=== PATIENT | female | born 1980 | race Caucasian/White ===

== ENCOUNTER 2021-02-21 15:06 | Emergency (ER) | payer BC, SELFPAY ==
--- NOTE | ~2021-02-21 | XR_ITS ---
EXAMINATION: XR knee RT 3V DATE: 02/21/2021 15:25 INDICATION: Lateral right knee pain post fall TECHNIQUE: Anteroposterior, oblique and crosstable lateral views of the right knee were obtained COMPARISON: None. FINDINGS: Alignment is normal. No fracture. Joint spaces appear normal on nonweightbearing imaging. Small righ t knee joint effusion without layering lipohemarthrosis. Soft tissues are unremarkable. IMPRESSION: 1. Small right knee joint effusion. No osseous abnormality. Reviewed, dictated and finalized at location A.
[2021-02-21 15:26] VITALS: BP 168/104; PULSE 92; RESP 18; TEMP 36.7; O2SAT 98
--- NOTE | 2021-02-21 16:41 | ED.LOWEXIN ---
HPI - Extremity Injury (Lower) General Chief Complaint: Extremity Injury, Lower Stated Complaint: poss right knee dislocation Time Seen by Provider: 02/21/21 16:14 Source: patient Mode of arrival: ambulatory Limitations: no limitations History of Present Illness HPI Narrative: This is a 41-year-old female that presents the emergency department for right knee injury sustained yesterday. Reports she was on her boat and slipped. Reports she twisted the right knee. Reports that she has had pain and swelling in the knee. Denies hitting her head, other injuries, decreased range of motion or numbness. Related Data Home Medications Medication Instructions Recorded Confirmed aspirin 81 mg PO DAILY 02/21/21 omeprazole 20 mg PO DAILY 02/21/21 Allergies Allergy/AdvReac Type Severity Reaction Status Date / Time No Known Allergies Allergy Unknown Verified 02/21/21 16:17 Review of Systems Review of Systems: CONSTITUTIONAL: Denies fever MUSCULOSKELETAL: Reports joint pain, and myalgia. NEUROLOGIC: Denies numbness All systems reviewed & are unremarkable except as noted in HPI and below PMFSH Past Medical History Medical History (Updated 02/21/21 @ 16:45 by Shy Melgoza PA-C) History of gastroesophageal reflux (GERD) Social History Social History (Updated 02/21/21 @ 16:42 by Shy Melgoza PA-C) Smoking status: Current every day smoker Exam Narrative: GENERAL: Well-appearing, well-nourished, and in no acute distress. HEAD: Normocephalic, atraumatic. EYES: EOMI. EXTREMITIES: Normal range of motion. No obvious deformity. Mild edema about the right knee anteriorly. Normal DP pulses. Normal sensation SKIN: Warm, dry, no rash. NEURO: No focal deficits. Alert and oriented x3. PSYCH: Normal mood and affect Course Vital Signs Vital signs: Vital Signs Temperature 98.0 F 02/21/21 15:26 Pulse Rate 92 02/21/21 15:26 Respiratory Rate 18 02/21/21 15:26 Blood Pressure 168/104 H 02/21/21 15:26 Pulse Oximetry 98 02/21/21 15:26 Temperature 98.0 F 02/21/21 15:26 Pulse Rate 92 02/21/21 15:26 Respiratory Rate 18 02/21/21 15:26 Blood Pressure 168/104 H 02/21/21 15:26 Pulse Oximetry 98 02/21/21 15:26 MDM - Extremity Injury (Lower) MDM Narrative Medical decision making narrative: Patient presents to the emergency department for right knee injury sustained yesterday. X-ray does show a small knee joint effusion. No osseous abnormalities. Patient placed in a knee immobilizer and given crutches. Instructed on care of knee sprain. She is to follow-up with orthopedics. She was given warnings to return to the ER Imaging Data Radiologist's impression: ITS Impressions Knee X-Ray 02/21/21 15:28 IMPRESSION: 1. Small right knee joint effusion. No osseous abnormality. Critical Care Time Critical Care Time Critical Care Time: No Discharge Plan Discharge Clinical Impression: Acute internal derangement of knee Qualifiers: Laterality: right Qualified Code(s): M23.91 - Unspecified internal derangement of right knee Patient Disposition: Home, Self-Care Condition: Stable Instructions: Knee Sprain (ED) Additional Instructions: Return to the emergency department if you experience fever, redness and swelling of your leg, numbness, or any other symptoms that are concerning to you Wear knee immobilizer and use crutches. No weight on the affected leg. Ice and elevate extremity. Pain medication as needed and directed. Follow up with orthopedics for further care. Prescriptions: No Action omeprazole 20 mg Tablet,Delayed Release (Dr/Ec) 20 mg PO DAILY RF: 0 aspirin 81 mg Capsule 81 mg PO DAILY RF: 0 Follow-up/Referrals: James Dsouza MD [Physician] - 1 Week PHYSICIAN NOT ON STAFF,NONSTAFF [Primary Care Provider] -
== END 2021-02-21 17:05 | disposition home or self-care (01) ==
PROVIDERS: Emergency Provider Family Medicine
DX: M23.91 Unspecified internal derangement of right knee (principal); S89.91XA Unspecified injury of right lower leg, initial encounter; K21.9 Gastro-esophageal reflux disease without esophagitis; F17.200 Nicotine dependence, unspecified, uncomplicated; X50.9XXA Other and unspecified overexertion or strenuous movements or postures, initial encounter; W18.49XA Other slipping, tripping and stumbling without falling, initial encounter
CPT/HCPCS: 73562; 99283

== ENCOUNTER 2021-03-10 09:41 | Outpatient (CLI) | payer BC, SELFPAY ==
--- NOTE | ~2021-03-10 | MR_ITS ---
EXAMINATION: MR knee RT wo con DATE: 03/10/2021 10:18 INDICATION: Unspecified right lower leg injury presenting with generalized right knee pain and diffic ulty walking post fall 2 1/2 weeks prior. TECHNIQUE: Magnetic resonance imaging (MRI) of the right knee was performed without intravenous contr ast. Sequences included coronal PD-weighted FSE, coronal PD-weighted FS FSE, sagittal T2-weighted FS E, sagittal PD-weighted FS FSE and axial PD weighted fat saturated FSE. COMPARISON: None. FINDINGS: Medial compartment: Medial meniscus is normal. Small region of shallow chondral ulceration along the lateral margin of th e anterior weightbearing medial femoral condyle. Remaining cartilage in the medial compartment is nor mal. Lateral compartment: Lateral meniscus is normal. Articular cartilage is normal. Patellofemoral compartment: Deep chondral ulceration and fissuring along the patellar apical ridge subarticular cystic change. Ad ditional deep chondral ulceration and fissuring with underlying cortical irregularity and minimal sub articular edema along the inferior aspect of the medial trochlea. Ligaments and tendons: Anterior and posterior cruciate ligaments are normal. Medial collateral ligament is normal. Mild thic kening and mild increased signal of the proximal fibular collateral ligament without surrounding anju a consistent with scarring related to chronic sprain. Mild distal quadriceps tendinopathy. Patellar t endon is normal. The visualized medial and lateral hamstring tendons as well as the iliotibial band a re normal. Fluid: Small right knee joint effusion. No loose osteochondral bodies identified. Mild prepatellar edema wit hout discrete bursal fluid collection. Osseous/other: A few small low signal intensity bone islands at the lateral femoral condyle and medial metaphyseal r egion of the distal femur. No fracture or abnormal marrow replacing process. IMPRESSION: 1. 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 2. Minimal osteoarthritis medial compartment with small region of moderate grade chondromalacia along the anterior weightbearing medial femoral condyle. 3. Small right knee joint effusion. Reviewed, dictated and finalized at location A. IMPRESSION: 1. Mild patellofemoral osteoarthritis with high-grade patellar and trochlear ch ondromalacia. 2. Minimal osteoarthritis medial compartment with small region of moderate grad e chondromalacia along the anterior weightbearing medial femoral condyle. 3. Small right knee joint effusion.
== END 2021-03-10 09:42 ==
LOC: MICIMG 09:42
PROVIDERS: Visit Provider Orthopaedic Surgery
DX: S89.91XA Unspecified injury of right lower leg, initial encounter (principal); M17.11 Unilateral primary osteoarthritis, right knee; M22.41 Chondromalacia patellae, right knee
CPT/HCPCS: 73721

== ENCOUNTER 2023-06-01 07:46 | Emergency (ER) | payer BC, SELFPAY ==
--- NOTE | ~2023-06-01 | XR_ITS ---
EXAMINATION: XR chest 2V DATE: 06/01/2023 08:19 INDICATION: Tachycardia TECHNIQUE: PA and lateral views of the chest are obtained. COMPARISON: None available FINDINGS: The lungs are free of acute opacities. No pleural effusion or pneumothorax. The cardiomedia stinal silhouette is normal. There is mild thoracic spondylosis. IMPRESSION: 1. No acute cardiopulmonary abnormality. Reviewed, dictated and finalized at location B. WARE VALIDATION TECHNICIAN
--- NOTE | 2023-06-01 07:48 | ECG_ITS ---
Measurements Intervals [place] Rate: 79 P: 45 AL: 147 QRS: 41 QRSD: 95 T: 50 QT: 389 QTc: 447 Interpretive Statements SINUS RHYTHM WITH SINUS ARRHYTHMIA NORMAL ECG NO PREVIOUS ECG AVAILABLE FOR COMPARISON Electronically Signed On 06-01-2023 15:33:35 TELECOMMUNICATIONS ADMINISTRATOR by Acosta Parra M.D.
[2023-06-01 07:52] VITALS: BP 175/104; PULSE 89; RESP 18; TEMP 36.8; O2SAT 99
--- NOTE | 2023-06-01 07:52 | ED.CHESTPAIN ---
HPI - Chest Pain General Chief Complaint: Chest Pain Stated Complaint: heart flutter Time Seen by Provider: 06/01/23 07:48 Source: patient Mode of arrival: ambulatory Limitations: no limitations History of Present Illness HPI narrative: Patient is a 43-year-old female with known borderline hypertension. She has been having palpitations for the past week. It is associated with some chest pain. No shortness of breath. No fever or chills. No nausea vomiting or diarrhea. Specifically when she relaxes at night palpitations are noted. MD complaint: chest pain Onset (ago): week(s) (1) Timing of current episode: episodic Prior episodes: Yes Onset: during rest Pain location: left chest Pain radiation: none Severity: moderate Pain scale (0-10): 5 Quality: sharp Relieving factors: nothing Exacerbating factors: nothing Context: other ( Known elevated blood pressures without medication) Treatment prior to arrival: none Risk Factors Coronary artery disease risk factors: none Thoracic aortic dissection risk factors: none Related Data On Oral Contraceptives: No Home Medications Medication Instructions Recorded Confirmed omeprazole 20 mg tablet,delayed 20 mg PO DAILY 02/21/21 06/01/23 release Allergies Allergy/AdvReac Type Severity Reaction Status Date / Time No Known Allergies Allergy Unknown Verified 04/01/21 14:49 Review of Systems Review of Systems: All systems reviewed & are unremarkable except as noted in HPI and below Constitutional: Constitutional: Reports as per HPI Eyes: Eyes: Reports as per HPI ENT: Reports system reviewed and no additional complaints, except as documented Cardiovascular: Cardiovascular: Reports as per HPI Respiratory: Respiratory: Reports as per HPI Gastrointestinal: Gastrointestinal: Reports as per HPI Genitourinary: Genitourinary: Reports no additional female genitourinary complaints Musculoskeletal: Musculoskeletal: Reports no additional musculoskeletal complaints Integumentary/Breasts: Skin/Breast: Reports system reviewed and no additional complaints, except as docu Neurologic: Reports system reviewed and no additional complaints, except as documented Psychiatric: Psychiatric: Reports no additional psychiatric complaints Endocrine: Endocrine: Reports no additional endocrine complaints Hematologic/Lymphatic: Hematologic/Lymphatic: Reports no additional hematologic/lymphatic complaints Allergic/Immunologic: Allergic/Immunologic: Reports no additional allergic/immunologic complaints PMFSH Past Medical History Medical History History of gastroesophageal reflux (GERD) Social History Social History Smoking packs per day: 0.5 Smoking cigarettes per day: 10.0 Years smoked: 20 Smoking pack-years: 10.00 Smoking status: Current every day smoker Tobacco type: cigarettes Alcohol intake: current Substance use: never Substance use type: does not use Living arrangements: with family Occupation/Education: 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[employer] Gender identity (if verbalized by the patient): Female Exam Const: General: healthy appearing Nutritional Appearance: well nourished Orientation/consciousness: patient oriented x3 Limitations: no limitations HENMT: Head: normal to inspection Ears: external ears normal Face/Nose/Sinus: Normal external nose present Eyes: Conjunctivae: conjunctivae normal Pupils: Equal, round and reactive pupils present EOM: EOMs intact bilaterally Neck: Neck: normal visual inspection Chest: Chest palpation & inspection: normal inspection of the chest Resp: Effort & Inspection: normal respiratory effort Auscultation: clear to auscultation bilaterally Cardio: Rate: regular rate Rhythm: regular rhythm Heart sounds: no murmurs GI: Inspection: non-distended GI Palp: Yes
[2023-06-01 08:06] LABS: Basophils Absolute Auto 0.02 K/mm3 (0.00-0.10); Basophils Percent Auto 0.2 % (0.0-1.0); Eosinophils Absolute Auto 0.11 K/mm3 (0.02-0.50); Eosinophils Percent Auto 1.2 % (1.0-6.0); Hematocrit 39.3 % (35.0-49.0); Hemoglobin 12.7 g/dL (12.0-15.0); Immature Granulocyte Absolute 0.02 K/mm3 (0.00-0.00); Immature Granulocyte Percent A 0.2 % (0.0-0.0); Lymphocytes Absolute Auto 2.18 K/mm3 (1.10-4.50); Lymphocytes Percent Auto 24.2 % (18.0-42.0); Mean Corpuscular HGB Conc 32.3 g/dL (32.0-36.0); Mean Corpuscular Hemoglobin 29.8 pg (27.0-31.0); Mean Corpuscular Volume 92.3 fL (78.0-102.0); Mean Platelet Volume 10.8 fl (9.2-11.8); Monocytes Percent Auto 5.5 % (2.0-11.0); Neutrophils Absolute Auto 6.2 K/mm3 (1.7-7.2); Neutrophils Percent Auto 68.7 % (50.0-70.0); Platelet Count Result 266 K/mm3 (150-420); Red Blood Count 4.26 M/mm3 (4.20-5.40); Red Cell Distribution Width 14.4 % (11.6-14.4)
[2023-06-01 08:11] VITALS: O2SAT 97
[2023-06-01 08:20] LABS: SARS-CoV-2 Ag Negative (Negative)
[2023-06-01 08:20] LABS: D Dimer 0.19 mg/L (0.19-0.50); INR 0.9; Partial Thromboplastin Time 25.9 SEC (23.90-30.70); Prothrombin Time 10.3 Seconds (9.50-12.10)
[2023-06-01] MEDS: amLODIPine BESYLATE 5 MG TABLET PO (08:22)
[2023-06-01 08:31] LABS: Alanine Aminotransferase 28 U/L (14-59); Albumin Level 3.5 g/dL (3.4-5.0); Alkaline Phosphatase 59 U/L (46-116); Anion Gap 5 mmol/L (8-16); Aspartate Amino Transferase 17 U/L (15-37); Bilirubin,Total 0.3 mg/dL (0.00-1.00); Blood Urea Nitrogen 12 mg/dL (7-18); Carbon Dioxide 31 mmol/L (21-32); Chloride 99 mmol/L (98-108); Estimated CRCL calculation 116 ml/min; Estimated Glomerular Filt Rate > 60; Glucose 110 mg/dL (70-99); Lipase 14 U/L (16-77); NT Pro B Type Natriuretic Pept 74 pg/mL (0-125); Osmolality Calculated 280 mOsm/kg (285-295); Potassium 3.9 mmol/L (3.5-5.1); Sodium 135 mmol/L (136-145); Total Protein 7.3 g/dL (6.4-8.2); Troponin I 5.4 ng/L (0.00-60.4)
[2023-06-01 09:44] VITALS: BP 158/93; PULSE 88; RESP 20; TEMP 36.7; O2SAT 100
== END 2023-06-01 09:49 | disposition home or self-care (01) ==
PROVIDERS: Emergency Provider Emergency Medicine
DX: R00.2 Palpitations (principal); I10 Essential (primary) hypertension; F17.210 Nicotine dependence, cigarettes, uncomplicated; Z20.822 Contact with and (suspected) exposure to COVID-19
CPT/HCPCS: 36415; 71046; 80053; 83690; 83880; 84484; 85025; 85380; 85610; 85730; 87426; 93005; 99284; A9270; C9803

== ENCOUNTER 2023-09-08 22:03 | Emergency (ER) | payer BC, SELFPAY ==
[2023-09-08] VITALS (19 sets, daily range): BP systolic 149–209; BP diastolic 88–139; PULSE 68–91; RESP 12–24; TEMP 36.6; O2SAT 94–100
--- NOTE | 2023-09-08 22:12 | ECG_ITS ---
Measurements Intervals [place] Rate: 88 P: 40 AK: 145 QRS: 35 QRSD: 102 T: 68 QT: 381 QTc: 462 Interpretive Statements SINUS RHYTHM WITH FREQUENT VENTRICULAR PREMATURE COMPLEXES NONSPECIFIC ST & T-WAVE ABNORMALITY ABNORMAL RHYTHM ECG COMPARED TO ECG 06/01/2023 07:57:22 VENTRICULAR ECTOPIC ACTIVITY IS NOW SEEN Electronically Signed On 09-10-2023 12:47:47 CDT by Acosta Parra M.D.
[2023-09-08] MEDS: METOPROLOL TARTRATE INJ 5 MG/5 ML VIAL IV PUSH (22:20)
--- NOTE | 2023-09-08 22:24 | ED.ARRPALP ---
HPI - Arrhythmia/Palpitations General Chief Complaint: Arrhythmia/Palpitations Stated Complaint: chest pain Time Seen by Provider: 09/08/23 22:08 Source: patient and family Mode of arrival: ambulatory Limitations: no limitations History of Present Illness HPI narrative: This is a 43-year-old female that has a history of hypertension and has not followed with her primary although she has been prescribed amlodipine 5mg daily and she has increased her amlodipine to10mg daily but presents with palpitations and fluttering in her chest with no chest pain no shortness breath no nausea vomiting no abdominal pain no headaches or blurry vision. Blood pressure is elevated to 209 systolic with some fluttering in her chest. No history of heart disease patient denies caffeine or energy drink use, patient is a smoker and has had 3 shots of alcohol this evening otherwise patient is a social drinker. complaint: skipped beats and palpitations Duration: intermittent Severity: moderate Related Data Home Medications Medication Instructions Recorded Confirmed omeprazole 20 mg tablet,delayed 20 mg PO DAILY 02/21/21 09/08/23 release Allergies Allergy/AdvReac Type Severity Reaction Status Date / Time No Known Allergies Allergy Unknown Verified 04/01/21 14:49 Review of Systems Review of Systems: All systems reviewed & are unremarkable except as noted in HPI and below PMFSH Past Medical History Medical History History of gastroesophageal reflux (GERD) Social History Social History Smoking packs per day: 0.5 Smoking cigarettes per day: 10.0 Years smoked: 20 Smoking pack-years: 10.00 Smoking status: Current every day smoker Tobacco type: cigarettes Alcohol intake: current Substance use: never Substance use type: does not use Living arrangements: with family Occupation/Education: 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[employer] Gender identity (if verbalized by the patient): Female Exam Const: General: healthy appearing Nutritional Appearance: well nourished Orientation/consciousness: patient oriented x3 Limitations: no limitations Neck: Neck: normal visual inspection, no lymphadenopathy and no meningeal signs Chest: Chest palpation & inspection: normal inspection of the chest Resp: Effort & Inspection: normal respiratory effort Auscultation: clear to auscultation bilaterally Cardio: Rate: regular rate Rhythm: abnormal rhythm GI: Auscultation: normal bowel sounds Skin: General skin exam: normal color Neuro: General: patient oriented x3, moves all extremities, no meningeal signs and no focal motor deficits Extrem: General: normal to inspection Course Course Emergency Course: Patient had EKG performed which shows normal sinus rhythm with occasional PVCs otherwise no ST or T changes. Patient blood pressure elevated over 200 systolic and received 5mg of IV Lopressor and blood pressure has improved down to 150 systolic. Patient states that she has not had PVCs since she has been here in the emergency department. Patient had blood work including troponin magnesium CMP performed and reviewed. Vital Signs Vital signs: Vital Signs Temperature 36.6 C 09/08/23 22:08 Pulse Rate 81 09/08/23 22:08 Respiratory Rate 20 09/08/23 22:08 Blood Pressure 209/139 H 09/08/23 22:08 Pulse Oximetry 100 09/08/23 22:08 Oxygen Delivery Room Air 09/08/23 22:08 Temperature 36.6 C 09/08/23 22:08 Pulse Rate 81 09/08/23 22:08 Respiratory Rate 20 09/08/23 22:08 Blood Pressure 209/139 H 09/08/23 22:08 Pulse Oximetry 100 09/08/23 22:08 Oxygen Delivery Room Air 09/08/23 22:08 MDM - Arrhythmia/Palpitations Lab Data 09/08/23 22:12 09/08/23 22:12 Labs: Lab Results 09/08/23 Range/Units 22:12 WBC
[2023-09-08 22:26] LABS: Hematocrit 40.4 % (35.0-49.0); Hemoglobin 12.9 g/dL (12.0-15.0); Mean Corpuscular HGB Conc 31.9 g/dL (32-36); Mean Corpuscular Hemoglobin 28.9 pg (27.0-31.0); Mean Corpuscular Volume 90.6 fL (78.0-102.0); Mean Platelet Volume 10.9 fl (9.2-11.8); Platelet Count Result 330 K/mm3 (150-420); Red Blood Count 4.46 M/mm3 (4.20-5.40); Red Cell Distribution Width 13.7 % (11.6-14.4); White Blood Count 13.7 K/mm3 (4.8-10.8)
[2023-09-08 22:42] LABS: Alanine Aminotransferase 23 U/L (14-59); Albumin Level 3.7 g/dL (3.4-5.0); Alkaline Phosphatase 77 U/L (46-116); Anion Gap 12 mmol/L (4-12); Aspartate Amino Transferase 15 U/L (15-37); Bilirubin,Total 0.1 mg/dL (0.00-1.00); Blood Urea Nitrogen 17 mg/dL (7-18); Calcium 8.8 mg/dL (8.5-10.1); Carbon Dioxide 25 mmol/L (21-32); Chloride 101 mmol/L (98-108); Estimated CRCL calculation 107 ml/min; Estimated Glomerular Filt Rate > 60; Glucose 114 mg/dL (70-99); Magnesium 1.7 mg/dL (1.8-2.4); Osmolality Calculated 288 mOsm/kg (285-295); Potassium 3.9 mmol/L (3.5-5.1); Sodium 138 mmol/L (136-145); Thyroid Stimulating Hormone 3.18 uIU/mL (0.36-3.74); Total Protein 7.5 g/dL (6.4-8.2)
[2023-09-08 22:50] LABS: Band Neutrophils Percent 0 % (0-6); Eosinophils Absolute Manual 0.13 K/mm3 (0.02-0.50); Eosinophils Percent Manual 1 % (1-6); Lymphocytes Absolute Manual 4.65 K/mm3 (1.1-4.5); Lymphocytes Percent Manual 34 % (18-44); Monocytes Absolute Manual 0.54 K/mm3 (0.1-0.90); Monocytes Percent Manual 4 % (3-9); Neutrophils Absolute Manual 8.35 K/mm3 (1.7-7.2); Neutrophils Percent Manual 61 % (46-73); Total Cells Counted 100
[2023-09-08 22:51] LABS: Platelet Estimate Adequate (Adequate); Schistocytes None Seen
[2023-09-08] MEDS: MAGNESIUM OXIDE 400 MG TABLET PO (23:05)
== END 2023-09-08 23:16 | disposition home or self-care (01) ==
PROVIDERS: Emergency Provider Emergency Medicine
DX: R00.2 Palpitations (principal); I10 Essential (primary) hypertension; K21.9 Gastro-esophageal reflux disease without esophagitis; F17.210 Nicotine dependence, cigarettes, uncomplicated
CPT/HCPCS: 36415; 80053; 83735; 84443; 85025; 93005; 96374; 99284; A9270

== ENCOUNTER 2023-09-28 14:05 | Outpatient (CLI) | payer BC, SELFPAY ==
[2023-09-28 15:08] LABS: Cholesterol 188 mg/dL (0-200); HDL Direct 45 mg/dL (40-60); LDL Cholesterol Calculated 105 mg/dL (<130); Triglycerides 189 mg/dL (0-150)
[2023-09-28 15:23] LABS: Hemoglobin A1C 5.6 % (<5.7)
== END 2023-09-28 14:06 | disposition home or self-care (01) ==
LOC: CHSLAB 14:08
PROVIDERS: PCP Family Medicine; Visit Provider Family Medicine
DX: Z00.00 Encounter for general adult medical examination without abnormal findings (principal); R73.09 Other abnormal glucose
CPT/HCPCS: 36415; 80061; 83036

== ENCOUNTER 2023-10-03 13:24 | Outpatient (CLI) | payer BC, SELFPAY ==
--- NOTE | ~2023-10-03 | MM_ITS ---
EXAMINATION: MM screening susan BI w mike HISTORY: Screening mammogram TECHNIQUE: Craniocaudal and mediolateral oblique 3-D tomosynthesis images were obtained and synthetic 2-D images were generated. CAD analysis was submitted and interpreted. COMPARISON: No prior mammogram is available for comparison at this institution. BREAST PARENCHYMAL COMPOSITION: There are scattered areas of fibroglandular density. FINDINGS: There is no evidence of suspicious mass, calcification, or architectural distortion to sugg est malignancy in either breast. IMPRESSION: 1. No mammographic evidence of malignancy. 2. Recommend routine screening mammography in one year. BI-RADS Category 1: Negative Reviewed, dictated and finalized at location A.
== END 2023-10-03 13:25 | disposition home or self-care (01) ==
LOC: CHSIMG 13:25
PROVIDERS: PCP Family Medicine; Visit Provider Family Medicine
DX: Z12.31 Encounter for screening mammogram for malignant neoplasm of breast (principal)
CPT/HCPCS: 77063; 77067

== ENCOUNTER 2023-10-05 14:51 | Outpatient (NON) | payer BC, SELFPAY | END 2023-10-05 14:52 | disposition home or self-care (01) | LOC: CHSLAB 14:53 | PROVIDERS: Visit Provider Family Medicine | DX: D23.4 Other benign neoplasm of skin of scalp and neck (principal) | CPT/HCPCS: 88305 ==

== ENCOUNTER 2023-10-16 14:21 | Outpatient (NON) | payer BC, SELFPAY | END 2023-10-16 14:22 | disposition home or self-care (01) | PROVIDERS: Visit Provider Family Medicine | DX: D23.5 Other benign neoplasm of skin of trunk (principal) | CPT/HCPCS: 88305 ==

== ENCOUNTER 2023-10-22 01:18 | Day surgery (SDC) | payer BC, SELFPAY ==
[2023-10-17 11:23] VITALS: BMI 33.5
--- NOTE | 2023-10-17 11:24 | PC.NURSE ---
Report to the Outpatient Waiting Room, entrance under the green pavilion located off [facility], at time _1300_ on date _[id number]_. Planned Procedure Time: _1400_. Time changes happen often and if your time is changed the preop area will call you the afternoon before. - You and your visitor will be asked to self-screen and do not enter if you have any COVID symptoms. - A mask is optional within the hospital at this time. Eat breakfast and a light lunch. Take the following medications with a SIP of water the morning of surgery: __All medications as usual. DO NOT STOP ANY OF YOUR OTHER PRESCRIPTION MEDICATIONS PRIOR TO SURGERY ?EXCEPT THE FOLLOWING Medications to discontinue per physician None Date to take last dose Please no make-up, nail setswana, hairspray, perfume, deodorant, or body powder the day of surgery. No jewelry (including any body piercings) or valuables the day of surgery, leave them at home. Please take a shower or bath the night before, or the morning of, surgery with an antibacterial soap. Wear comfortable, loose fitting clothing. - Jewelry must be removed prior to entering the operating room. Rings and piercings that are not removed may be cut off. - The hospital will not accept responsibility for valuables. - Please leave all valuables, including medications, at home the day of surgery. If you are going home after surgery, a licensed explosives truck driver must drive you home. - NO public transportation without another adult if you receive anesthesia. - We recommend that an adult stay with you for 24 hours following discharge. - We also recommend that you do not drive, make important decision, drink alcoholic beverages, or take any drugs that were not prescribed by your health care provider for at least 24 hours after your discharge time. Follow any additional instructions given to you from your surgeon. If you or anyone in your household have experienced Covid symptoms in the past week, please notify your surgeon or the nurse liaison at the phone number below for possible testing. Telephone instructions given to _Pam___and asked if any additional questions and then verbalized understanding. Patient advised to call surgeon office or pre surgery nurse liaison [phone] if any additional questions.
[2023-10-22] VITALS (8 sets, daily range): BP systolic 137–171; BP diastolic 72–93; PULSE 69–84; RESP 14–18; TEMP 36.8; O2SAT 97–98
--- NOTE | 2023-10-22 14:34 | WPDHPUPDATE1 ---
History and Physical Update Update Date/Time: 10/22/23 14:34 History and Physical has been reviewed, including an updated exam of the patient. There are NO changes in the patient's condition. Risks, benefits, and alternatives have been discussed and questions answered. Patient agrees to proceed with procedure.
[2023-10-22] MEDS: BUPivacaine HCL 0.5% 10 ML AMP 15 ML INFILTRATE (15:41)
[2023-10-22] MEDS: LIDO 1%/EPINEPHRINE 1:100,000 20 ML VIAL 15 ML INFILTRATE (15:42)
--- NOTE | 2023-10-22 16:04 | W.PM.PROC2 ---
Procedure Note - Detailed Date of Procedure 10/22/23 Pre-op Diagnosis Left Upper Back Cyst Post-op Diagnosis Same Procedure Performed Excision left upper back cyst with 4cm intermediate layered wound closure. Surgeon Phani Coon MD Anesthesia Local Indications Patient is a 43-year-old female presented with a subcutaneous mass in left upper back region. It was consistent with a left upper back cyst likely a sebaceous cyst. She presents now for excision. Findings Patient had a 3.5x2.5x1.5cm sebaceous cyst in left upper back. After excision he was closed with a 4cm intermediate layered wound closure Description of Procedure After informed consent was obtained patient brought to the operating room she was placed the prone position on operating table. A time-out was then performed identifying the patient as well as procedure to be performed verifying site marking. We then prepped and draped the left upper back region usual sterile fashion. I started by anesthetizing the area around the cyst for local anesthetic effect utilizing 1% lidocaine mixed with 0.5% Marcaine with some epinephrine. I then made a longitudinal incision over the top of the mass the scalp was then dissected down through the dermis of the skin with a scalpel. Once I was into the subcutaneous tissues I then carefully dissected around the capsule of the cyst utilizing sharp scissor and electrocautery dissection. Once the cyst was completely excised out the subcutaneous tissues it was measured it was 3.5x2.5x1.5cm. It appeared grossly consistent with a sebaceous cyst. it was sent to pathology for examination. Hemostasis was then achieved in the incision electrocautery. A 4cm intermediate layered wound closure was then performed consisting of 2-0 Vicryl suture in the deeper subcutaneous tissues. This is then followed by 3-0 Vicryl sutures in the deep dermal layer. The skin edges were approximated utilizing a running subcuticular 4 Monocryl suture. The incision was then cleaned the skin glue was applied. The patient tolerated the procedure well no complications. All sponges, needles, and instrument counts were correct at the end procedure. EBL was _5__cc. The patient was awakened and taken to recovery in stable and satisfactory condition. Implants None Estimated Blood Loss 5 Drains No Packing No Pathology Yes ( back cyst sent to pathology) Complications No immediate complications Condition Stable Disposition PACU [facility] Billing Surgery - Charge Forward: Surgery Billing
== END 2023-10-22 16:12 | disposition home or self-care (01) ==
PROVIDERS: PCP Family Medicine; Visit Provider Surgery
PROC: (CPT 11406; principal; 2023-10-22 15:00)
DX: L72.0 Epidermal cyst (principal); I10 Essential (primary) hypertension; K21.9 Gastro-esophageal reflux disease without esophagitis; F17.210 Nicotine dependence, cigarettes, uncomplicated
CPT/HCPCS: 11406; 12032; 88305; A9270

== ENCOUNTER 2024-04-16 19:41 | Emergency (ER) | payer BC, SELFPAY ==
--- NOTE | ~2024-04-16 | XR_ITS ---
CHEST RADIOGRAPH CLINICAL HISTORY: Chest discomfort . COMPARISON: 06/01/2023 TECHNIQUE: Single portable view of the chest. FINDINGS The cardiomediastinal silhouette is unremarkable. The lungs are clear. Visualized osseous structures and soft tissues are unremarkable. IMPRESSION: No focal infiltrate or effusion. Reviewed, dictated and finalized at location A. AS CASTING DIRECTOR
[2024-04-16 19:41] VITALS: BP 170/104; PULSE 83; RESP 18; TEMP 36.6; O2SAT 100
--- NOTE | 2024-04-16 19:43 | ECG_ITS ---
Test Date: 2024-04-16 19:45:42 Measurements Intervals [place] Rate: 77 P: 42 OR: 158 QRS: 41 QRSD: 101 T: 48 QT: 399 QTc: 452 Interpretive Statements SINUS RHYTHM BASELINE ARTIFACT- I, II, AVR, AVL NORMAL ECG No previous ECG available for comparison Electronically Signed On 04-17-2024 05:33:07 BOTTLE CASER by John Matt D.O.
--- NOTE | 2024-04-16 19:44 | ED_ITS ---
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 this comes on at rest. Not related to activity. these are intermittent and lasts around 20 minutes when it comes on. She gets it at night when she lays down to sleep. -- chest pressure. No shortness of breath. complaint: palpitations Onset (ago): week(s) ( Two weeks) Duration: intermittent Context: occurred during rest Associated symptoms: chest pain ( Chest discomfort) Related Data Allergies Allergy/AdvReac Type Severity Reaction Status Date / Time No Known Allergies Allergy Unknown Verified 01/18/24 07:35 Review of Systems Review of Systems: All systems reviewed & are unremarkable except as noted in HPI and below Constitutional: Constitutional: Reports as per HPI and Reports no additional constitutional complaints Eyes: Eyes: Reports as per HPI and Reports no additional eye complaints Comments: floaters in the field of vision of right eye. ENT: Reports system reviewed and no additional complaints, except as documented and Reports as per HPI Cardiovascular: Cardiovascular: Reports as per HPI and Reports no additional cardiovascular complaints Comments: Palpitation with chest discomfort Respiratory: Respiratory: Reports as per HPI and Reports no additional respiratory complaints Gastrointestinal: Gastrointestinal: Reports as per HPI and Reports no addit ional gastrointestinal complaints Genitourinary: Genitourinary: Reports no additional female genitourinary complaints Musculoskeletal: Musculoskeletal: Reports no additional musculoskeletal co mplaints and Reports as per HPI Integumentary/Breasts: Skin/Breast: Reports system reviewed and no additional complaints, except as docu and Reports as per HPI Neurologic: Reports system reviewed and no additional complaints, except as documented and Reports as per HPI Psychiatric: Psychiatric: Reports no additional psychiatric complaints and Reports as per HPI Endocrine: Endocrine: Reports no additional endocrine complaints and Reports as per HPI Hematologic/Lymphatic: Hematologic/Lymphatic: Reports no additional hematologic/lymphatic complaints and Reports as per HPI Allergic/Immunologic: Allergic/Immunologic: Reports no additional allergic/immunologic complaints and Reports as per HPI FOR[facility]LY [facility] Past Medical History Medical History History of gastroesophageal reflux (GERD) Hypertension Social History Social History Smoking packs per day: 0.5 Smoking cigarettes per day: 10.0 Years smoked: 20 Smoking pack-years: 10.00 Smoking status: Current every day smoker Tobacco type: cigarettes Alcohol intake: current Drinks per week: 6 Substance use: never Substance use type: does not use Do You Feel Safe in your Home?: Yes Lack of Transportation: No Lack of Food: Never True Current Housing: I Have Housing Concerned About Future Housing: No Difficulty Paying Gas/Electric Bills: No Difficulty Paying for Meds: No Currently Unemployed: No Education: High School Diploma/GED Difficulty w/ Childcare or Family Care: No Living arrangements: with family Occupation/Education: 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[email or web address] Gender identity (if verbalized by the patient): Female Spiritual care concerns: No Exam Narrative: blood pressure 170/104. Pulse rate of 83. Oxygen saturation of 100% on room air. Const: General: healthy appearing and no acute distress Nutritional Appearance: well nourished Orientation/consciousness: patient oriented x3 Limitations: no limitations HENMT: Head: normal to inspection Ears: external ears normal Face/Nose/Sinus: Normal external nose present Face and sinus: normal facial exam Mouth: Yes Normal oral and palatal mucosa present Throat: posterior oropharynx normal Eyes: Conjunctivae: conjunctivae normal Pupils: Equal, round and reactive pupils present EOM: EOMs intact bilaterally Direct Ophthalmoscopy: no photophobia Neck: Neck: normal visual inspection, no lymphadenopathy and no meningeal signs Chest: Chest palpation & inspection: normal inspection of the chest Resp: Effort & Inspection: normal respiratory effort Auscultation: clear to auscultation bilaterally Cardio: Rate: regular rate Rhythm: regular rhythm GI: Auscultation: normal bowel sounds Other: No tenderness/ rigidity /rebound. : General: Yes no CVA tenderness Back/Spine/Pelvis: Back: no CVA tenderness Skin: General skin exam: normal color Rashes: no rashes Wounds: no wounds Neuro: General: patient oriented x3, moves all extremities, no meningeal signs, no focal motor deficits and CN's II-XI intact bilaterally Cranial nerves: Yes Nystagmus not present Speech: normal speech Gait exam (Neuro): Normal gait present Extrem: General: normal to inspection and no clubbing, cyanosis or edema Psych: Mental Status: mental status grossly normal Affect: normal affect Attitude: cooperative Course Course Emergency Course: Hypertension- blood pressure on presentation was noted to be 170/104. A repeat blood pressure reading was noted to be 134/84. palpitation chest discomfort-- Patient had chest discomfort for the past 2 weeks. The patient has an unremarkable EKG and the troponin were noted to be negative. She has a normal D-dimer. advised to monitor her blood pressure closely. Discussed the adverse effect of albuterol. Advised to get a stress test if she has persistent chest discomfort and palpitation. Vital Signs Vital signs: Vital Signs Temperature 36.6 C 04/16/24 19:41 Pulse Rate 83 04/16/24 19:41 Respiratory Rate 18 04/16/24 19:41 Blood Pressure 170/104 H 04/16/24 19:41 Pulse Oximetry 100 04/16/24 19:41 Oxygen Delivery Room Air 04/16/24 19:41 Temperature 36.6 C 04/16/24 19:41 Pulse Rate 82 04/16/24 19:45 Respiratory Rate 12 04/16/24 19:45 Blood Pressure 170/104 H 04/16/24 19:45 Pulse Oximetry 100 04/16/24 19:45 Oxygen Delivery Room Air 04/16/24 19:45 MDM - Arrhythmia/Palpitations MDM Narrative Medical decision making narrative: palpitation Hypertension atypical chest pain Differential Diagnosis Differential diagnosis: Likely anxiety Medical Records Attestation: I reviewed the patient's medical records. Lab Data Attestation: I reviewed the patient's lab results. 04/16/24 20:00 04/16/24 20:00 Labs: Lab Results 04/16/24 Range/Units 20:00 WBC 12.4 H (4.8-10.8) K/mm3 RBC 4.19 L (4.20-5.40) M/mm3 Hgb 11.7 L (12.0-15.0) g/dL Hct 35.7 (35.0-49.0) % MCV 85.2 (78.0-102.0) fL MCH 27.9 (27.0-31.0) pg MCHC 32.8 (32-36) g/dL RDW 14.4 (11.6-14.4) % Plt Count 299 (150-420) K/mm3 MPV 10.6 (9.2-11.8) fl Immature Gran % (Auto) 0.2 H (0.0-0.0) % Neut % (Auto) 67.8 (50.0-70.0) % Lymph % (Auto) 25.1 (18.0-42.0) % [place] % (Auto) 5.5 (2.0-11.0) % Eos % (Auto) 1.2 (1.0-6.0) % Baso % (Auto) 0.2 (0.0-1.0) % Lymph # (Auto) 3.12 (1.10-4.50) K/mm3 [place] # (Auto) 0.68 (0.10-0.90) K/mm3 Eos # (Auto) 0.15 (0.02-0.50) K/mm3 Baso # (Auto) 0.03 (0.00-0.10) K/mm3 Abs Immat Gran (auto) 0.02 H (0.00-0.00) K/mm3 Absolute Neuts (auto) 8.44 H (1.70-7.20) K/mm3 Absolute Nucleated RBC 0.00 (0.00-0.00) K/mm3 Nucleated RBC % 0.0 (0-0.0) % Sodium 138 (136-145) mmol/L Potassium 3.8 (3.5-5.1) mmol/L Chloride 102 (98-108) mmol/L Carbon Dioxide 25 (21-32) mmol/L Anion Gap 11 (4-12) mmol/L BUN 15 (7-18) mg/dL Creatinine 0.75 (0.55-1.02) mg/dL Estim Creat Clear Calc 102 ml/min Estimated GFR > 60 (59 - ) Glucose 149 H (70-99) mg/dL Calculated Osmolality 289 (285-295) mOsm/kg Calcium 9.0 (8.5-10.1) mg/dL Total Bilirubin 0.2 (0.00-1.00) mg/dL AST 15 (15-37) U/L ALT 25 (14-59) U/L Alkaline Phosphatase 71 (46-116) U/L Troponin I < 4.0 (0.00-60.4) ng/L NT-Pro-B Natriuret Pep 25 (0-125) pg/mL Total Protein 7.0 (6.4-8.2) g/dL Albumin 3.4 (3.4-5.0) g/dL ECG Data EKG #1: ECG completion date: 04/16/24 ECG completion time: 19:45 Interpretation: normal sinus rhythm. Normal axis. No ST-T wave changes noted. Discharge Plan Discharge Clinical Impression: Palpitations, Chest discomfort Hypertension Qualifiers: Hypertension type: unspecified Qualified Code(s): I10 - Essential (primary) hypertension Patient Disposition: Home, Self-Care Condition: Stable Instructions: Antibiotic Form, Chest Pain (ED), Heart Palpitations (ED) Patient Language: Citizen Of [place] Prescriptions: No Action amlodipine 10 mg tablet See Rx Instructions .ROUTE .COMPLEX Qty: 90 2RF Dose Instruction: TAKE 1 TABLET BY MOUTH EVERY DAY Rx Instructions: TAKE 1 TABLET BY MOUTH EVERY DAY metoprolol succinate 25 mg tablet extended release 24 hr See Rx Instructions .ROUTE .COMPLEX Qty: 90 2RF Dose Instruction: TAKE 1 TABLET BY MOUTH EVERY DAY Rx Instructions: TAKE 1 TABLET BY MOUTH EVERY DAY albuterol sulfate 90 mcg/actuation HFA aerosol inhaler See Rx Instructions .ROUTE .COMPLEX Qty: 8.5 0RF Dose Instruction: INHALE 1 PUFF EVERY 4 HOURS Rx Instructions: INHALE 1 PUFF EVERY 4 HOURS Follow-up/Referrals: Raul Braden DO [Primary Care Provider] - Time of Disposition: 20:56
[2024-04-16 19:45] VITALS: BP 170/104; PULSE 82; RESP 12; O2SAT 100
[2024-04-16 20:11] LABS: Basophils Absolute Auto 0.03 K/mm3 (0.00-0.10); Basophils Percent Auto 0.2 % (0.0-1.0); Eosinophils Absolute Auto 0.15 K/mm3 (0.02-0.50); Eosinophils Percent Auto 1.2 % (1.0-6.0); Hematocrit 35.7 % (35.0-49.0); Hemoglobin 11.7 g/dL (12.0-15.0); Immature Granulocyte Absolute 0.02 K/mm3 (0.00-0.00); Immature Granulocyte Percent A 0.2 % (0.0-0.0); Lymphocytes Absolute Auto 3.12 K/mm3 (1.10-4.50); Lymphocytes Percent Auto 25.1 % (18.0-42.0); Mean Corpuscular HGB Conc 32.8 g/dL (32-36); Mean Corpuscular Hemoglobin 27.9 pg (27.0-31.0); Mean Corpuscular Volume 85.2 fL (78.0-102.0); Mean Platelet Volume 10.6 fl (9.2-11.8); Monocytes Absolute Auto 0.68 K/mm3 (0.10-0.90); Monocytes Percent Auto 5.5 % (2.0-11.0); Neutrophils Absolute Auto 8.44 K/mm3 (1.70-7.20); Neutrophils Percent Auto 67.8 % (50.0-70.0); Platelet Count Result 299 K/mm3 (150-420); Red Blood Count 4.19 M/mm3 (4.20-5.40); Red Cell Distribution Width 14.4 % (11.6-14.4); White Blood Count 12.4 K/mm3 (4.8-10.8)
[2024-04-16 20:36] LABS: Alanine Aminotransferase 25 U/L (14-59); Albumin Level 3.4 g/dL (3.4-5.0); Alkaline Phosphatase 71 U/L (46-116); Anion Gap 11 mmol/L (4-12); Aspartate Amino Transferase 15 U/L (15-37); Bilirubin,Total 0.2 mg/dL (0.00-1.00); Blood Urea Nitrogen 15 mg/dL (7-18); Carbon Dioxide 25 mmol/L (21-32); Chloride 102 mmol/L (98-108); Estimated CRCL calculation 102 ml/min; Estimated Glomerular Filt Rate > 60; Glucose 149 mg/dL (70-99); NT Pro B Type Natriuretic Pept 25 pg/mL (0-125); Osmolality Calculated 289 mOsm/kg (285-295); Potassium 3.8 mmol/L (3.5-5.1); Sodium 138 mmol/L (136-145)
[2024-04-16 20:39] LABS: Troponin I < 4.0 ng/L (0.00-60.4)
[2024-04-16 21:01] VITALS: BP 145/89; PULSE 70; RESP 18; O2SAT 100
== END 2024-04-16 21:05 | disposition home or self-care (01) ==
PROVIDERS: Emergency Provider Internal Medicine Critical Care Medicine; PCP Family Medicine
DX: R00.2 Palpitations (principal); R07.9 Chest pain, unspecified; I10 Essential (primary) hypertension; F17.210 Nicotine dependence, cigarettes, uncomplicated
CPT/HCPCS: 36415; 71045; 80053; 83880; 84484; 85025; 93005; 99284